=== PATIENT | male | born 1945 | race Asian ===

== ENCOUNTER 2019-09-18 14:38 | Inpatient (IN) | payer MEDICARE, OTHER ==
[~2019-09-18] VITALS: Ht 165.1 cm; Wt 88.6 kg
[2019-09-18] MEDS ORDERED: SIMV40TA PO (15:18)
[2019-09-18] MEDS ORDERED: HYDR12.5 PO (15:18)
[2019-09-18] MEDS ORDERED: CYAN-51 PO (15:18)
[2019-09-18 15:54] LABS: ALANINE AMINOTRANSFERASE 93 U/L (12-78); ALBUMIN 2.3 G/DL (3.4-5.0); ALBUMIN/GLOBULIN RATIO 0.6 (1.1-1.5); ALKALINE PHOSPHATASE 116 IU/L (46-116); ANION GAP 8 (8-16); ASPARTATE AMINO TRANSFERASE 290 U/L (10-37); BILIRUBIN,TOTAL 3.1 MG/DL (0.1-1.0); BLOOD UREA NITROGEN 25 MG/DL (7-18); CALCIUM 7.2 MG/DL (8.5-10.1); CHLORIDE 104 MMOL/L (99-107); CREATININE 1.04 MG/DL (0.60-1.10); GLUCOSE 138 MG/DL (70-104); POTASSIUM 4.1 MMOL/L (3.5-5.1); SODIUM 135 MMOL/L (135-145); TOTAL CARBON DIOXIDE 23.1 MMOL/L (24-32); TOTAL PROTEIN 6.2 G/DL (6.4-8.2); eGFR 70 ML/MIN
[2019-09-18 16:22] LABS: MAGNESIUM 1.8 MG/DL (1.5-2.4)
[2019-09-18 16:27] LABS: PARTIAL THROMBOPLASTIN TIME 52 SECONDS (22-32)
[2019-09-18] MEDS ORDERED: aspirin 81mg tab.chew PO STA (16:27)
[2019-09-18 16:28] LABS: HEMATOCRIT 37.5 % (42.0-52.0); HEMOGLOBIN 13.4 g/dl (14.0-17.9); MEAN CORPUSCULAR HEMOGLOBIN 35.2 PG (27.0-31.0); MEAN CORPUSCULAR VOLUME 100.4 FL (78-98); RED BLOOD COUNT 3.69 X10'6 (4.70-6.10); WHITE BLOOD COUNT 9.1 X10'3 (4.5-11.0)
[2019-09-18 16:29] LABS: BASOPHILS % (AUTO) 0.2 % (0-1); EOSINOPHILS % (AUTO) 0 % (0-6); LYMPHOCYTES # (AUTO) 0.3 X10'3 (1.1-4.8); LYMPHOCYTES % (AUTO) 3.6 % (21-51); MEAN PLATELET VOLUME 8.3 FL (7.4-10.4); MONOCYTES # (AUTO) 0.7 X10'3 (0-0.9); MONOCYTES % (AUTO) 7.9 % (2-12); NEUTROPHILS % (AUTO) 88.3 % (42-75); PLATELET COUNT 37 X10'3 (140-440); RED CELL DISTRIBUTION WIDTH 14.9 % (11.5-14.5)
[2019-09-18] MEDS ORDERED: acetaminophen 325mg tablet PO PRN ×2 (16:55)
[2019-09-18] MEDS ORDERED: nitroGLYCERIN 0.4mg SUBLingual tab SL PRN (16:55)
[2019-09-18] MEDS ORDERED: morphine 2 MG/ML inj. syringe IV PRN ×2 (16:55)
[2019-09-18] MEDS ORDERED: HYDROcodone/acetaminophen 5mg/325mg tablet PO PRN (16:55)
[2019-09-18] MEDS ORDERED: mag hydrox/Alum hydrox/simeth 30ml oral suspension PO PRN (16:55)
[2019-09-18] MEDS ORDERED: ondansetron/PF 4mg/2ml inj IV PRN (16:55)
[2019-09-18] MEDS ORDERED: magnesium hydroxide 30ml (MOM) UD suspension PO PRN (16:55)
--- NOTE | 2019-09-18 17:29 | NUR ---
Patient in room 310. I have received report from NEY Bloom from ED and had the opportunity to ask questions and assume patient care.
[2019-09-18 17:49] VITALS: BP 147/74
--- NOTE | 2019-09-18 17:52 | NUR ---
Problems reprioritized. Patient report given, questions answered & plan of care reviewed with NEY Page.
[2019-09-18 19:10] LABS: BANDS% (MANUAL) 3 % (0-10); LYMPHOCYTES % (MANUAL) 1 % (21-51); MONOCYTES % (MANUAL) 5 % (2-12); NEUTROPHILS % (MANUAL) 91 % (42-75); PLATELET ESTIMATE DECREASED; SCHISTOCYTES NONE SEEN; TOTAL CELLS COUNTED 100
[2019-09-18] MEDS ORDERED: iohexol 300mg/ml 100ml inj. ONE (19:57)
[2019-09-18 20:01] VITALS: BP 141/76
[2019-09-18] MEDS ORDERED: vancomycin/NS 1 GM ADD-VANTAGE 250 ML X 1 DOSE IV ONE ×2 (20:10→22:00)
--- NOTE | 2019-09-18 20:27 | NUR ---
patient left the room for the ct of the hip.
[2019-09-18 20:49] LABS: D-DIMER 20.87 MG/L FEU (0-0.50)
[2019-09-18] MEDS ORDERED: cefepime 2g/NS 100ml ADVANTAGE 100 ML IV SCH (22:00)
[2019-09-18] MEDS: normal saline 1000ml 1,000 ML IV SCH (22:19)
--- NOTE | 2019-09-18 22:41 | NUR ---
called Dr. Xavier for the patient's temp being 100.4 at 1999. He ordered blood cultures, and vancomycin for tonight per pharmacy protocol and Rocephin 2gm every 24 hours starting date 09/19/19. No other orders were given at this time.
[2019-09-19] MEDS: cefepime 2g/NS 100ml ADVANTAGE 100 ML IV SCH ×2 (00:07→08:05)
[2019-09-19] MEDS: metroNIDAZOLE-Flagyl 500mg/NS 100 ML IV SCH ×3 (00:07→17:36)
[2019-09-19 02:00] VITALS: BP 134/74
[2019-09-19] MEDS: diatr meglu/diatrizoate 30ml oral sol.-(3 dose) bottle PO SCH ×3 (02:20→10:28)
--- NOTE | 2019-09-19 04:00 | NUR ---
Dr. Baker was informed regarding positve blood culture results with gram negative rods from both aierobic and anaerobic bottles from [facility]. No new orders were given at this time
[2019-09-19 04:42] LABS: BASOPHILS % (AUTO) 0.3 % (0-1); EOSINOPHILS % (AUTO) 0.2 % (0-6); HEMATOCRIT 35.9 % (42.0-52.0); HEMOGLOBIN 12.8 g/dl (14.0-17.9); LYMPHOCYTES # (AUTO) 0.2 X10'3 (1.1-4.8); LYMPHOCYTES % (AUTO) 3.1 % (21-51); MEAN CORPUSCULAR HEMOGLOBIN 35.3 PG (27.0-31.0); MEAN CORPUSCULAR HGB CONC 35.5 g/dL (33.0-36.5); MEAN CORPUSCULAR VOLUME 99.5 FL (78-98); MEAN PLATELET VOLUME 7.4 FL (7.4-10.4); MONOCYTES # (AUTO) 0.4 X10'3 (0-0.9); MONOCYTES % (AUTO) 6.2 % (2-12); NEUTROPHILS # (AUTO) 6.3 X10'3 (1.8-7.7); NEUTROPHILS % (AUTO) 90.2 % (42-75); RED BLOOD COUNT 3.61 X10'6 (4.70-6.10); RED CELL DISTRIBUTION WIDTH 14.8 % (11.5-14.5)
[2019-09-19 04:50] LABS: PLATELET COUNT 33 X10'3 (140-440)
[2019-09-19] MEDS: normal saline 1000ml 1,000 ML IV SCH ×3 (04:55→21:40)
[2019-09-19 04:56] LABS: ALBUMIN 2.3 G/DL (3.4-5.0); ANION GAP 10 (8-16); BLOOD UREA NITROGEN 25 MG/DL (7-18); CALCIUM 7.5 MG/DL (8.5-10.1); CHLORIDE 103 MMOL/L (99-107); CHOLESTEROL 84 MG/DL (0-200); CREATININE 0.96 MG/DL (0.60-1.10); GLUCOSE 168 MG/DL (70-104); HDL CHOLESTEROL 21 MG/DL (35-60); LDL CHOLESTEROL 23 MG/DL (50-100); POTASSIUM 3.9 MMOL/L (3.5-5.1); SODIUM 134 MMOL/L (135-145); TOTAL CARBON DIOXIDE 20.6 MMOL/L (24-32); TRIGLYCERIDES 135 MG/DL (20-135); eGFR 77 ML/MIN
--- NOTE | 2019-09-19 05:08 | NUR ---
Called Dr. Xavier and informed him regarding the critical value of platelet being 33, troponin of 0.63, and lactic acid of 3.6. He acknowledge the critical values. No orders were given at this time.
[2019-09-19 06:00] VITALS: BP 132/48
--- NOTE | 2019-09-19 06:32 | NUR ---
Problems reprioritized. Patient report given to MiroslavaRN, questions answered & plan of care reviewed with .
--- NOTE | 2019-09-19 06:43 | NUR ---
Patient in room MED 310. I have received report from NEY Page and had the opportunity to ask questions and assume patient care.
[2019-09-19] MEDS ORDERED: cefepime 2g/NS 100ml ADVANTAGE 100 ML IV SCH (08:00)
[2019-09-19] MEDS ORDERED: VANCOmycin 1250MG/NS 250ml Bag 250 ML IV SCH (08:00)
[2019-09-19] MEDS ORDERED: CefTRIAXone/D5W-Rocephin 1gm 50 ML IV SCH (08:00)
[2019-09-19] MEDS: aspirin 81mg tablet.DR PO SCH (08:04)
[2019-09-19 08:54] LABS: PLATELET ESTIMATE DECREASED; TOTAL CELLS COUNTED 100
[2019-09-19 08:55] LABS: POLYCHROMASIA 1+
[2019-09-19 11:00] VITALS: BP 108/61
[2019-09-19] MEDS ORDERED: iohexol 300mg/ml 100ml inj. ONE (11:00)
--- NOTE | 2019-09-19 11:13 | NUR ---
Initial: Pt admitted for NSTEMI and sepsis. Pt currently on carb controlled, heart healthy diet, no documented PO intake. Will monitor PO intake to determine need for protein supplementation. [facility] 08/16, recommend routine bowel care. Will continue to monitor. Recommendations: 1. advance diet as medically indicated to carb controlled, heart healthy 2. monitor PO intake for ONS need 3. bowel care as needed 4. weight per rx Addendum: 09/19/19 at 1113 by Wing Petra HUFFMAN Amended: Links added. Addendum: 09/19/19 at 1708 [address] NATHANAEL Carter
--- NOTE | 2019-09-19 12:41 | NUR ---
PAGER ID: [phone] MESSAGE: deanne 310. pt. Ino Cade. pt. CT of the abd. came back. pt. is very anxious to eat. please advise. NEY Lopez [phone].
[2019-09-19] MEDS ORDERED: METF500T20 PO (14:03)
[2019-09-19 15:00] VITALS: BP 115/60
--- NOTE | 2019-09-19 17:11 | NUR ---
scant serosanguioneous fluid noted on penis. pt. has no pain with wiping and savita care. Addendum: 09/19/19 at 1716 by Jessica Louise RN Amended: Links added.
[2019-09-19 18:00] VITALS: BP 124/67
--- NOTE | 2019-09-19 18:00 | NUR ---
Patient in room MED 310. I have received report from DOREEN BREWSTER and had the opportunity to ask questions and assume patient care.
--- NOTE | 2019-09-19 18:45 | NUR ---
Problems reprioritized. Patient report given, questions answered & plan of care reviewed with NEY Coelho.
[2019-09-19] MEDS: lactobacillus rhamnosus 10,000 MMU CELLS/CAPSULE PO SCH (21:38)
[2019-09-19 22:00] VITALS: BP 118/67
--- NOTE | 2019-09-19 22:00 | NUR ---
Spoke with Duc and he ordered a UA for pt
[2019-09-20] VITALS (7 sets, daily range): BP systolic 106–115; BP diastolic 61–71
[2019-09-20 02:09] LABS: CLARITY,URINE CLEAR (Clear); COLOR,URINE YELLOW (Yellow); GLUCOSE, URINE NEGATIVE (Neg); KETONES,URINE NEGATIVE (Neg); LEUKOCYTE ESTERASE ,URINE NEGATIVE (Neg); NITRITES, URINE NEGATIVE (Neg); OCCULT BLOOD,URINE LARGE (Neg); PH,URINE 6.5 (4.8-8.0); PROTEIN,URINE 100 mg/dl (Neg)
[2019-09-20 02:22] LABS: UA COLLECTION TYPE CLN CATCH MIDSTREAM; WBC,URINE 0-4 /HPF (0-4)
[2019-09-20 02:23] LABS: BACTERIA,URINE FEW /HPF (Neg); SQUAMOUS EPITHELIAL CELL,UR FEW /LPF (FEW)
[2019-09-20 05:40] LABS: ANION GAP 8 (8-16); BLOOD UREA NITROGEN 26 MG/DL (7-18); BUN/CREATININE RATIO 38.2 (5.4-32.0); CALCIUM 6.9 MG/DL (8.5-10.1); CHLORIDE 104 MMOL/L (99-107); CREATININE 0.68 MG/DL (0.60-1.10); GLUCOSE 150 MG/DL (70-104); POTASSIUM 3.7 MMOL/L (3.5-5.1); SODIUM 134 MMOL/L (135-145); TOTAL CARBON DIOXIDE 21.7 MMOL/L (24-32); eGFR > 90 ML/MIN
[2019-09-20 05:48] LABS: HEMOGLOBIN 11.8 g/dl (14.0-17.9); WHITE BLOOD COUNT 8.7 X10'3 (4.5-11.0)
[2019-09-20 05:49] LABS: BASOPHILS % (AUTO) 0.1 % (0-1); EOSINOPHILS # (AUTO) 0.1 X10'3 (0-0.9); EOSINOPHILS % (AUTO) 1.2 % (0-6); HEMATOCRIT 33.2 % (42.0-52.0); LYMPHOCYTES # (AUTO) 0.6 X10'3 (1.1-4.8); LYMPHOCYTES % (AUTO) 6.3 % (21-51); MEAN CORPUSCULAR HEMOGLOBIN 35.3 PG (27.0-31.0); MEAN CORPUSCULAR HGB CONC 35.6 g/dL (33.0-36.5); MEAN CORPUSCULAR VOLUME 99.2 FL (78-98); MEAN PLATELET VOLUME 7.7 FL (7.4-10.4); MONOCYTES # (AUTO) 1.6 X10'3 (0-0.9); MONOCYTES % (AUTO) 18.6 % (2-12); NEUTROPHILS # (AUTO) 6.5 X10'3 (1.8-7.7); NEUTROPHILS % (AUTO) 73.8 % (42-75); RED BLOOD COUNT 3.35 X10'6 (4.70-6.10); RED CELL DISTRIBUTION WIDTH 14.8 % (11.5-14.5)
[2019-09-20 05:54] LABS: PLATELET COUNT 32 X10'3 (140-440)
--- NOTE | 2019-09-20 06:00 | NUR ---
Problems reprioritized. Patient report given, questions answered & plan of care reviewed with Talia BREWSTER.
[2019-09-20 06:19] LABS: PLATELET ESTIMATE DECREASED; TOTAL CELLS COUNTED 100
[2019-09-20] MEDS: normal saline 1000ml 1,000 ML IV SCH ×3 (06:47→20:50)
[2019-09-20] MEDS ORDERED: VANCOMYCIN LEVEL IV ONE (07:30)
[2019-09-20] MEDS: CefTRIAXone 2gm/D5W 50ml 50 ML IV SCH (09:16)
[2019-09-20] MEDS: lactobacillus rhamnosus 10,000 MMU CELLS/CAPSULE PO SCH ×2 (09:16→20:50)
[2019-09-20] MEDS: aspirin 81mg tablet.DR PO SCH (09:16)
[2019-09-20 12:49] LABS: D-DIMER 5.12 MG/L FEU (0-0.50); PARTIAL THROMBOPLASTIN TIME 48 SECONDS (22-32)
[2019-09-20] MEDS ORDERED: insulin Lispro (HumaLOG) vial - multi-dose SQ SCH (15:35)
[2019-09-20] MEDS ORDERED: dextrose ORAL solution 15 GM/59 ML bottle PO PRN ×2 (15:35)
[2019-09-20] MEDS ORDERED: dextrose 50%-water 50ml dispensing syringe IV PRN ×2 (15:35)
[2019-09-20] MEDS ORDERED: glucagon, human recombinant 1mg kit SUBCUT PRN (15:35)
[2019-09-20] MEDS ORDERED: MESSAGE TO PHARMACY PO ONE (15:35)
--- NOTE | 2019-09-20 18:00 | NUR ---
Patient in room MED 310. I have received report from JACK BREWSTER and had the opportunity to ask questions and assume patient care.
[2019-09-20] MEDS: insulin glargine (Lantus) pen - multi-dose SQ SCH (21:00)
[2019-09-21 02:00] VITALS: BP 106/61
[2019-09-21 03:24] LABS: BASOPHILS % (AUTO) 0.2 % (0-1); EOSINOPHILS # (AUTO) 0.2 X10'3 (0-0.9); EOSINOPHILS % (AUTO) 1.8 % (0-6); HEMATOCRIT 32.9 % (42.0-52.0); HEMOGLOBIN 11.6 g/dl (14.0-17.9); LYMPHOCYTES # (AUTO) 0.6 X10'3 (1.1-4.8); LYMPHOCYTES % (AUTO) 6.8 % (21-51); MEAN CORPUSCULAR HEMOGLOBIN 35.5 PG (27.0-31.0); MEAN CORPUSCULAR HGB CONC 35.3 g/dL (33.0-36.5); MEAN CORPUSCULAR VOLUME 100.6 FL (78-98); MEAN PLATELET VOLUME 8.4 FL (7.4-10.4); MONOCYTES # (AUTO) 1.2 X10'3 (0-0.9); MONOCYTES % (AUTO) 14.5 % (2-12); NEUTROPHILS # (AUTO) 6.4 X10'3 (1.8-7.7); NEUTROPHILS % (AUTO) 76.7 % (42-75); RED BLOOD COUNT 3.27 X10'6 (4.70-6.10); WHITE BLOOD COUNT 8.4 X10'3 (4.5-11.0)
[2019-09-21 03:34] LABS: ALBUMIN 1.9 G/DL (3.4-5.0); BLOOD UREA NITROGEN 19 MG/DL (7-18); CHLORIDE 104 MMOL/L (99-107); POTASSIUM 3.6 MMOL/L (3.5-5.1)
[2019-09-21 03:37] LABS: PLATELET COUNT 38 X10'3 (140-440)
[2019-09-21 03:52] LABS: ANION GAP 7 (8-16); BUN/CREATININE RATIO 30.2 (5.4-32.0); CALCIUM 7.1 MG/DL (8.5-10.1); CREATININE 0.63 MG/DL (0.60-1.10); GLUCOSE 135 MG/DL (70-104); SODIUM 133 MMOL/L (135-145); TOTAL CARBON DIOXIDE 21.8 MMOL/L (24-32); eGFR > 90 ML/MIN
[2019-09-21] MEDS: normal saline 1000ml 1,000 ML IV SCH ×3 (04:55→20:57)
[2019-09-21 06:00] VITALS: BP 105/69
--- NOTE | 2019-09-21 06:00 | NUR ---
Problems reprioritized. Patient report given, questions answered & plan of care reviewed with Mena BREWSTER.
--- NOTE | 2019-09-21 06:39 | NUR ---
Patient in room MED 310. I have received report from NEY Duffy and had the opportunity to ask questions and assume patient care.
[2019-09-21] MEDS: lactobacillus rhamnosus 10,000 MMU CELLS/CAPSULE PO SCH ×2 (08:33→20:57)
[2019-09-21] MEDS: aspirin 81mg tablet.DR PO SCH (08:33)
[2019-09-21] MEDS: CefTRIAXone 2gm/D5W 50ml 50 ML IV SCH (08:33)
[2019-09-21] MEDS: HYDROchlorothiazide 12.5mg capsule PO SCH (08:33)
[2019-09-21] MEDS ORDERED: aminophylline 250mg/10ml inj. IV PRN (09:15)
[2019-09-21] MEDS ORDERED: regadenoson 0.4mg/5ml syringe IV ONE (09:15)
[2019-09-21] MEDS ORDERED: metoprolol tartrate 1mg/ml inj IV PRN (09:15)
[2019-09-21] MEDS ORDERED: nitroGLYCERIN 0.4mg SUBLingual tab SL PRN (09:15)
[2019-09-21 11:00] VITALS: BP 109/64
[2019-09-21 11:08] LABS: HBSAG SCREEN Negative (Negative); HEPATITIS C ANTIBODY <0.1 s/co ratio (0.0-0.9)
[2019-09-21 15:00] VITALS: BP 111/75
[2019-09-21 18:00] VITALS: BP 103/76
--- NOTE | 2019-09-21 18:39 | NUR ---
Problems reprioritized. Patient report given, questions answered & plan of care reviewed with NEY Song.
--- NOTE | 2019-09-21 19:24 | NUR ---
REPORT REC'D FROM NEY COHEN.
[2019-09-21] MEDS: insulin glargine (Lantus) pen - multi-dose SQ SCH (21:00)
[2019-09-21 22:00] VITALS: BP 119/69
[2019-09-22] VITALS (14 sets, daily range): BP systolic 107–126; BP diastolic 57–79
[2019-09-22] MEDS: normal saline 1000ml 1,000 ML IV SCH ×3 (04:59→21:48)
--- NOTE | 2019-09-22 06:05 | NUR ---
Patient in room MED 310. I have received report from NEY Song and had the opportunity to ask questions and assume patient care.
[2019-09-22 06:10] LABS: BASOPHILS % (AUTO) 0.2 % (0-1); EOSINOPHILS # (AUTO) 0.3 X10'3 (0-0.9); EOSINOPHILS % (AUTO) 4.1 % (0-6); HEMOGLOBIN 11.8 g/dl (14.0-17.9); LYMPHOCYTES # (AUTO) 0.6 X10'3 (1.1-4.8); LYMPHOCYTES % (AUTO) 7.9 % (21-51); MEAN CORPUSCULAR HEMOGLOBIN 35.6 PG (27.0-31.0); MEAN CORPUSCULAR HGB CONC 35.6 g/dL (33.0-36.5); MEAN CORPUSCULAR VOLUME 99.8 FL (78-98); MEAN PLATELET VOLUME 8.9 FL (7.4-10.4); MONOCYTES # (AUTO) 1.1 X10'3 (0-0.9); MONOCYTES % (AUTO) 14.7 % (2-12); NEUTROPHILS # (AUTO) 5.7 X10'3 (1.8-7.7); NEUTROPHILS % (AUTO) 73.1 % (42-75); PLATELET COUNT 53 X10'3 (140-440); RED BLOOD COUNT 3.31 X10'6 (4.70-6.10); RED CELL DISTRIBUTION WIDTH 14.8 % (11.5-14.5); WHITE BLOOD COUNT 7.7 X10'3 (4.5-11.0)
[2019-09-22 06:11] LABS: ALBUMIN 1.8 G/DL (3.4-5.0); ANION GAP 5 (8-16); BLOOD UREA NITROGEN 10 MG/DL (7-18); BUN/CREATININE RATIO 15.9 (5.4-32.0); CALCIUM 6.8 MG/DL (8.5-10.1); CHLORIDE 104 MMOL/L (99-107); CREATININE 0.63 MG/DL (0.60-1.10); GLUCOSE 121 MG/DL (70-104); SODIUM 134 MMOL/L (135-145); TOTAL CARBON DIOXIDE 24.7 MMOL/L (24-32); eGFR > 90 ML/MIN
--- NOTE | 2019-09-22 06:34 | NUR ---
REPORT GIVEN TO NEY GUNN.
--- NOTE | 2019-09-22 06:45 | NUR ---
PAGER ID: [phone] MESSAGE: RM 310 Markell Cade this AM 3.0. Will replace per protocol. Raysa ACCE [id number]
[2019-09-22] MEDS ORDERED: potassium CL 10mEq/100ml bag 100 ML IV PRN (07:05)
[2019-09-22] MEDS ORDERED: magnesium Cl slow-release 64mg tablet PO PRN (07:05)
[2019-09-22] MEDS ORDERED: magnesium 2GM in 50ml NS 50 ML IV PRN (07:05)
[2019-09-22] MEDS ORDERED: magnesium 4gm in 100ml NS 100 ML IV PRN (07:05)
[2019-09-22] MEDS ORDERED: potassium Cl 20 mEq SR tablet PO PRN (07:05)
[2019-09-22] MEDS ORDERED: regadenoson 0.4mg/5ml syringe IV ONE (08:00)
[2019-09-22] MEDS: potassium Cl 20 mEq SR tablet PO PRN ×3 (08:32→17:33)
[2019-09-22] MEDS: HYDROchlorothiazide 12.5mg capsule PO SCH (08:32)
[2019-09-22] MEDS: CefTRIAXone 2gm/D5W 50ml 50 ML IV SCH (08:32)
[2019-09-22] MEDS: aspirin 81mg tablet.DR PO SCH (08:32)
[2019-09-22] MEDS: lactobacillus rhamnosus 10,000 MMU CELLS/CAPSULE PO SCH ×2 (08:32→19:34)
--- NOTE | 2019-09-22 14:45 | NUR ---
Reassessment: Pt PO 100% carb controlled/heart healthy diet meeting needs. NPO this AM for mireya per RN. LBM 09/21. CT shows liver lesion concerned for possible malignancy per MD note. Will continue to monitor. Recommendations: 1. advance diet as medically indicated to carb controlled, heart healthy 2. monitor PO intake for ONS need 3. bowel care as needed 4. weight per rx Addendum: 09/22/19 at 1445 by Jose G [address] RD Amended: Links added.
--- NOTE | 2019-09-22 14:58 | NUR ---
PAGER ID: [phone] MESSAGE: RM 310 please call Raysa regarding discharge for this patient. Thanks ACCE [id number]
--- NOTE | 2019-09-22 16:05 | NUR ---
PAGER ID: [phone] MESSAGE: RM 310 please call Raysa regarding discharge for this patient. Thanks ACCE [id number]
[2019-09-22] MEDS ORDERED: METO-539 PO (16:12)
[2019-09-22] MEDS ORDERED: FURO-149 PO (16:12)
[2019-09-22] MEDS ORDERED: ASPI-1071 PO (16:12)
[2019-09-22] MEDS ORDERED: LEVO500T2 PO (16:12)
[2019-09-22] MEDS ORDERED: SPIR50TA5 PO (16:12)
--- NOTE | 2019-09-22 17:06 | NUR ---
Paged Dr. Winter regarding discharge PAGER ID: [phone] MESSAGE: RM 310: patient family is requesting patient stay one more night and discuss paracentesis. Please call Raysa METCALF [phone]
--- NOTE | 2019-09-22 17:13 | NUR ---
Per MD orders, discharge cancelled. 1609- recieved discharge orders, and an order for outpatient eval for paracentesis as well as liver biopsy. 1700- Per patient family members, family requested that paracentesis and liver biopsy be performed while patient is inpatient rather than outpatient. Spoke with Dr. Winter, received orders to cancel discharge and the patient will be seen by IR tomorrow for procedures. Patient aware and compliant with plan of care.
--- NOTE | 2019-09-22 18:15 | NUR ---
Patient in room MED 310. I have received report from NEY Tabares and had the opportunity to ask questions and assume patient care.
--- NOTE | 2019-09-22 18:28 | NUR ---
Problems reprioritized. Patient report given, questions answered & plan of care reviewed with NEY Zarate.
[2019-09-22] MEDS: metoprolol succinate 25mg (24-HOUR) SR. Tablet PO SCH (19:34)
[2019-09-22] MEDS: furosemide 40mg tablet PO SCH (19:34)
[2019-09-22] MEDS: insulin glargine (Lantus) pen - multi-dose SQ SCH (21:00)
[2019-09-23] VITALS (21 sets, daily range): BP systolic 90–132; BP diastolic 48–73
[2019-09-23 03:53] LABS: BASOPHILS % (AUTO) 0.3 % (0-1); EOSINOPHILS # (AUTO) 0.4 X10'3 (0-0.9); EOSINOPHILS % (AUTO) 4.7 % (0-6); HEMATOCRIT 34.8 % (42.0-52.0); HEMOGLOBIN 12.4 g/dl (14.0-17.9); LYMPHOCYTES # (AUTO) 0.7 X10'3 (1.1-4.8); LYMPHOCYTES % (AUTO) 8.6 % (21-51); MEAN CORPUSCULAR HEMOGLOBIN 35.3 PG (27.0-31.0); MEAN CORPUSCULAR HGB CONC 35.6 g/dL (33.0-36.5); MEAN CORPUSCULAR VOLUME 99.2 FL (78-98); MEAN PLATELET VOLUME 8.4 FL (7.4-10.4); MONOCYTES # (AUTO) 1.2 X10'3 (0-0.9); MONOCYTES % (AUTO) 15.7 % (2-12); NEUTROPHILS # (AUTO) 5.6 X10'3 (1.8-7.7); NEUTROPHILS % (AUTO) 70.7 % (42-75); PLATELET COUNT 77 X10'3 (140-440); RED CELL DISTRIBUTION WIDTH 14.8 % (11.5-14.5); WHITE BLOOD COUNT 7.9 X10'3 (4.5-11.0)
[2019-09-23 04:00] LABS: ALBUMIN 1.9 G/DL (3.4-5.0); ANION GAP 5 (8-16); BLOOD UREA NITROGEN 10 MG/DL (7-18); BUN/CREATININE RATIO 15.4 (5.4-32.0); CALCIUM 7.2 MG/DL (8.5-10.1); CHLORIDE 104 MMOL/L (99-107); CREATININE 0.65 MG/DL (0.60-1.10); GLUCOSE 119 MG/DL (70-104); MAGNESIUM 1.9 MG/DL (1.5-2.4); POTASSIUM 3.4 MMOL/L (3.5-5.1); SODIUM 135 MMOL/L (135-145); TOTAL CARBON DIOXIDE 25.6 MMOL/L (24-32); eGFR > 90 ML/MIN
[2019-09-23 04:36] LABS: TOTAL CELLS COUNTED 100
[2019-09-23 04:38] LABS: PLATELET ESTIMATE DECREASED
[2019-09-23] MEDS: normal saline 1000ml 1,000 ML IV SCH ×2 (04:55→13:06)
--- NOTE | 2019-09-23 06:10 | NUR ---
Patient in room MED 310. I have received report from NEY Zarate and had the opportunity to ask questions and assume patient care.
--- NOTE | 2019-09-23 06:10 | NUR ---
Problems reprioritized. Patient report given, questions answered & plan of care reviewed with ENY Tabares.
[2019-09-23] MEDS: metoprolol succinate 25mg (24-HOUR) SR. Tablet PO SCH (07:40)
[2019-09-23] MEDS: lactobacillus rhamnosus 10,000 MMU CELLS/CAPSULE PO SCH (07:40)
[2019-09-23] MEDS: HYDROchlorothiazide 12.5mg capsule PO SCH (07:40)
[2019-09-23] MEDS: aspirin 81mg tablet.DR PO SCH (07:40)
[2019-09-23] MEDS: CefTRIAXone 2gm/D5W 50ml 50 ML IV SCH (07:41)
[2019-09-23] MEDS: furosemide 40mg tablet PO SCH (07:41)
[2019-09-23] MEDS ORDERED: spironolactone 50 MG tablet PO SCH (08:30)
[2019-09-23] MEDS ORDERED: fentaNYL/PF 50MCG/1 ML 2ML syringe IV PRN (09:55)
[2019-09-23] MEDS ORDERED: LIDOcaine 1%/PF 5ML 10 MG/ML VIAL SQ ONE (09:55)
[2019-09-23] MEDS ORDERED: midazolam 2 mg/2 ml injection IV PRN (09:55)
--- NOTE | 2019-09-23 10:00 | NUR ---
Patient to IR.
[2019-09-23] MEDS ORDERED: midazolam 2 mg/2 ml injection ONE (10:08)
[2019-09-23] MEDS ORDERED: fentaNYL/PF 50MCG/1 ML 2ML syringe ONE (10:08)
[2019-09-23] MEDS ORDERED: gelatin sponge, absorbable (Gelfoam 12-7MM) sponge TP ONE (10:17)
--- NOTE | 2019-09-23 13:00 | NUR ---
Patient refused 1200 blood glucose check.
--- NOTE | 2019-09-23 14:37 | NUR ---
PAGER ID: [phone] MESSAGE: [phone]- can we reinstate discharge orders? Thanks Giovanna METCALF [phone]
--- NOTE | 2019-09-23 15:15 | NUR ---
Patient stable for discharge per MD orders. Liver biopsy site clean, dry intact. Clean, dry bandaid in place. PIV discontinued, cannula intact. Clean, dry dressing in place. All discharge instructions and prescriptions reviewed with patient, all questions answered. engine monitor removed. Prescription orders handed to patient. All belongings collected and sent with patient. Patient wheeled to [facility] at 1515 by RN to be transported home by family.
== END 2019-09-23 15:17 | disposition home or self-care (01) | DRG 871 ==
LOC: ER 14:39 → ED HOLD 16:53 → MED 3N 17:55 → CMPBEDREQ 09-22 20:05
PROVIDERS: ADMIT Internal Medicine; ATTEND Internal Medicine
PROC: BQ2R1ZZ Computerized Tomography (CT Scan) of Right Lower Extremity using Low Osmolar Contrast (ICD-10-PCS; principal; 2019-09-18)
PROC: BW211ZZ Computerized Tomography (CT Scan) of Abdomen and Pelvis using Low Osmolar Contrast (ICD-10-PCS; 2019-09-19)
PROC: 4A02XM4 Measurement of Cardiac Total Activity, External Approach (ICD-10-PCS; 2019-09-22)
PROC: 3E033HZ Introduction of Radioactive Substance into Peripheral Vein, Percutaneous Approach (ICD-10-PCS; 2019-09-22)
PROC: 0FB03ZX Excision of Liver, Percutaneous Approach, Diagnostic (ICD-10-PCS; 2019-09-23)
PROC: 0W9G3ZZ Drainage of Peritoneal Cavity, Percutaneous Approach (ICD-10-PCS; 2019-09-23)
DX: A41.9 Sepsis, unspecified organism (principal); I21.4 Non-ST elevation (NSTEMI) myocardial infarction; J18.9 Pneumonia, unspecified organism; K65.2 Spontaneous bacterial peritonitis; E87.2 Acidosis; R18.8 Other ascites; D53.9 Nutritional anemia, unspecified; D69.59 Other secondary thrombocytopenia; E11.9 Type 2 diabetes mellitus without complications; E78.00 Pure hypercholesterolemia, unspecified; E78.5 Hyperlipidemia, unspecified; E87.6 Hypokalemia; W18.39XA Other fall on same level, initial encounter; I10 Essential (primary) hypertension; R16.0 Hepatomegaly, not elsewhere classified; M25.551 Pain in right hip; K72.90 Hepatic failure, unspecified without coma; K73.9 Chronic hepatitis, unspecified; K74.60 Unspecified cirrhosis of liver; Z79.82 Long term (current) use of aspirin; Z79.84 Long term (current) use of oral hypoglycemic drugs; Z79.899 Other long term (current) drug therapy; Y93.89 Activity, other specified; Y92.89 Other specified places as the place of occurrence of the external cause; Y99.8 Other external cause status
CPT/HCPCS: 36415; 47000; 49083; 71045; 73701; 74177; 77012; 78452; 80048; 80053; 80061; 80202; 81001; 82948; 83036; 83605; 83735; 83880; 84132; 84145; 84484; 85025; 85379; 85384; 85610; 85730; 86803; 87040; 87081; 87340; 88307; 88342; 93005; 93017; 93306; 97116; 97161; 97530; 99152; 99153; 99285; A9500; G0378; J0692; J0696; J1815; J2250; J2785; J3010; J3370; J3490; J7030; Q9963; Q9967